=== PATIENT | male | born 1990 | race African-American/Black ===

== ENCOUNTER 2025-04-19 13:50 | Emergency (ER) | payer OTHER ==
[~2025-04-19] VITALS: Ht 185.4 cm; Wt 103.2 kg
[2025-04-19 18:06] VITALS: BP 127/75; TEMP 97.6; O2SAT 100
== END 2025-04-19 19:49 | disposition home or self-care (01) ==
LOC: M ED 13:50
DX: S63.602A Unspecified sprain of left thumb, initial encounter (principal); Y92.9 Unspecified place or not applicable; Y93.9 Activity, unspecified; Y99.0 Civilian activity done for income or pay; W01.0XXA Fall on same level from slipping, tripping and stumbling without subsequent striking against object, initial encounter

== ENCOUNTER → 2025-05-23 | Outpatient (CLI) | payer OTHER | LOC: M PLAIMG 06:38 | DX: S63.61 Unspecified sprain of other and unspecified finger(s) (principal) ==